=== PATIENT | female | born 1935 | race Caucasian/White ===

== ENCOUNTER 2017-02-19 16:36 | Emergency (ER) | payer MEDICARE, BC ==
[2017-02-19] MEDS ORDERED: LIDOCAINE HCL 20 ML UDC MM ONE (16:57)
[2017-02-19] MEDS ORDERED: NYSTATIN 60 ML BTL PO ONE (16:57)
[2017-02-19] MEDS ORDERED: MAG HYDROX/ALUMINUM HYD/SIMETH 30 ML UDC PO ONE (16:57)
[2017-02-19] MEDS ORDERED: diphenhydrAMINE HCL 12.5 MG/5 ML BTL PO ONE (16:57)
--- NOTE | 2017-02-19 17:03 | ERNOTE ---
Date of Service: 02/19/17 Time Seen by Provider: 02/19/17 16:52 Stated Complaint: THROAT PROBLEM Presenting Symptoms:: cough Source: patient Exam Limitations: no limitations Immunizations: IMMUNIZATION HX Immunizations Up to Date Yes History of Influenza Vaccine No Hx Pneumococcal Vaccination Yes Allergies/Adverse Reactions: Allergies penicillin G Allergy (Unknown, Verified 02/19/17 16:48) Penicillins Allergy (Verified 02/19/17 16:48) procaine HCl [From Novocain] Allergy (Verified 02/19/17 16:48) Sulfa (Sulfonamide Antibiotics) Allergy (Verified 02/19/17 16:48) sulfamethoxazole [From Bactrim] Allergy (Verified 02/19/17 16:48) trimethoprim [From Bactrim] Allergy (Verified 02/19/17 16:48) Home Medications: HOME MEDICATIONS Aspirin 09/19/12 [Last Taken Unknown] Gabapentin 08/29/15 [Last Taken Unknown] Lexapro 08/29/15 [Last Taken Unknown] Symbicort 160-4.5 Mcg Inhaler 08/29/15 [Last Taken Unknown] - History of Present Ilness Narrative: Pt. comes in with c/o cough for 10 hours after she accidentally aspirated on [employer] this morning. Pt. states that she has had a dry cough that feels occlusive occasionally but improves with coughing. Pt. denies any SOB, fever, rhinorrhea, but does state that her throat is sore. Review of Systems - Review of Systems Constitutional: Present: no symptoms reported. Absent: recent illness, fever, chills, weakness, fatigue, malaise EYE: Present: no symptoms reported ENT: Present: sore throat. Absent: ear pain, nose congestion, nasal drainage Respiratory: Present: cough. Absent: shortness of breath Cardiology: Present: no symptoms reported. Absent: chest pain, palpitations, edema Gastrointestinal/Abdominal: Present: no symptoms reported Genitourinary: Present: no symptoms reported Musculoskeletal: Present: no symptoms reported. Absent: back pain, joint pain Skin: Present: no symptoms reported. Absent: rash, change in hair/nails Neurological: Present: no symptoms reported. Absent: headache, dizziness/light- headedness, numbness, tingling All Other Systems: All systems neg except as marked - Patient's Past Medical History Patient History - Medical: No pertinent hx Patient History - Cardiac/Respiratory: No pertinent hx, Hypertension Patient History - Cancer: Breast, Radiation Therapy, Surgical Treatment Patient History - Surgical Procedures: Appendectomy, Cholecystectomy, Other - Social History Smoking Status: Never smoker Have you smoked in the past 12 months: No - Immunizations Immunizations Up to Date: Yes Hx Pneumococcal Vaccination: Yes History of Influenza Vaccine: No Physical Exam - Physical Exam General Appearance: Present: wd/wn, alert, no apparent distress Head Exam: Present: normal inspection, no evidence of injury Eye Exam: Normal inspection: bilateral, PERRL: bilateral, EOMI: bilateral Ears, Nose, Throat: Present: pharyngeal erythema. Absent: pharyngeal swelling, tonsillar exudate, dry mucous membranes Neck: Present: normal inspection, nontender. Absent: lymphadenopathy (R), lymphadenopathy (L) Respiratory: Present: no respiratory distress, normal breath sounds, no accessory muscle use, chest nontender, lungs clear. Absent: rales, rhonchi, stridor, wheezing Cardiovascular/Chest: Present: regular rate, rhythm, no murmur, normal peripheral pulses Back Exam: Present: normal inspection Extremity Exam: Present: normal inspection Neurological Exam: Present: alert, oriented, normal mood/affect, no motor/ sensory deficits, research biostatistician II-XII nml as tested, normal cerebellar test Skin Exam: Present: normal color, warm/dry. Absent: pallor, skin rash ED Progress - Vital Signs Patient's Vital Signs:: I have reviewed the patient's vital signs. Vital Signs: Vital Signs 02/19/17 16:43 Temperature 36.4 C L Pulse Rate 77 Respiratory 14 Rate Blood Pressure 177/89 O2 Sat by Pulse 96 Oximetry - X-Ray X-Ray #1 X-Ray: chest Interpretation: Interp. by me X-ray Comments: no consolidation, no atelactasis, no foreign body, no steepling. - Progress/Reassessment Chief Complaint: Upper Respiratory Symptoms Progress:: Unchanged Departure - Departure Clinical Impression: Pharyngitis Qualifiers: Pharyngitis/tonsillitis etiology: unspecified etiology Qualified Code(s): J02.9 - Acute pharyngitis, unspecified Disposition: Home self-care Condition: Good Instructions: Pharyngitis, [id number] Additional Instructions: Please follow up with primary provider in 2-3 days. Referrals: Ines Lynch MD [Primary Care Provider] -
[2017-02-19 17:39] VITALS: BP 164/84
== END 2017-02-19 17:44 | disposition home or self-care (01) ==
LOC: ER 16:36
DX: J02.9 Acute pharyngitis, unspecified (principal); Z85.3 Personal history of malignant neoplasm of breast